=== PATIENT | female | born 1955 | race Caucasian/White ===

== ENCOUNTER 2016-07-22 15:15 | Emergency (ER) | payer OTHER, MEDICAID ==
[2016-07-22] MEDS ORDERED: LETS SOLN TOPICAL 1 EA SYR TP ONE ×2 (15:30)
[2016-07-22 15:39] VITALS: RESP 16; O2SAT 94
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
[2016-07-22 17:19] VITALS: BP 109/79; PULSE 89; TEMP 97.9
== END 2016-07-22 17:17 | disposition home or self-care (01) ==
LOC: EDUNIT#
DX: S80.211A Abrasion, right knee, initial encounter (principal); V03.10XA Pedestrian on foot injured in collision with car, pick-up truck or van in traffic accident, initial encounter; Y92.410 Unspecified street and highway as the place of occurrence of the external cause

== ENCOUNTER 2016-07-24 15:48 | Emergency (ER) | payer OTHER, MEDICAID ==
[2016-07-24 16:02] VITALS: TEMP 98.2
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
[2016-07-24 19:31] VITALS: RESP 18; O2SAT 95
[2016-07-24] MEDS ORDERED: IOPAMIDOL (ISOVUE-300) 100 ML BTL IV ONE (19:46)
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
[2016-07-24 21:26] VITALS: BP 115/70; PULSE 70
== END 2016-07-24 21:25 | disposition home or self-care (01) ==
DX: M25.551 Pain in right hip (principal); J45.909 Unspecified asthma, uncomplicated; Z87.891 Personal history of nicotine dependence; V89.2XXD Person injured in unspecified motor-vehicle accident, traffic, subsequent encounter
CPT/HCPCS: 71260; 74177; 99285; Q9967; 82947-QW

== ENCOUNTER 2017-07-29 23:30 | Emergency (ER) | payer OTHER, MEDICAID ==
[2017-07-29 23:37] VITALS: BP 127/89; PULSE 86; RESP 18; TEMP 98.4; O2SAT 96
--- NOTE | 2017-07-30 01:44 | EDPHY ---
H & P Time Seen by Provider: 07/29/17 23:46 HPI/ROS: CHIEF COMPLAINT: Bilateral hand pain HISTORY OF PRESENT ILLNESS: 62-year-old female presents to the emergency department with pain in both of her hands. She denies any known trauma or injury but feels that they are a bit more swollen. They are painful specially with movement. She saw her primary care provider today, Dr. Darshana Ramos, who recommended she come to the emergency department for evaluation. She is right-hand dominant. She also has URI symptoms including rhinorrhea and cough which she has had for several days. ROS: Denies numbness or tingling in her fingers, pain in her wrist or elbow. Denies fevers or chills. Past Medical/Surgical History: Knee replacement, scoliosis Social History: Single and lives in [place] Smoking Status: Former smoker Physical Exam: On examination the patient has arthritic deformity noted to her thumbs especially the base of the 1st MCP joint. She has reproducible pain with palpation at this joint. There is no redness or warmth or signs of infection. No lymphangitis. She has arthritic changes noted to her fingers especially nodes noted the D IP and PIP joints. Constitutional: Initial Vital Signs Temperature (C) 36.9 C 07/29/17 23:32 Heart Rate 86 07/29/17 23:32 Respiratory Rate 18 07/29/17 23:32 Blood Pressure 127/89 H 07/29/17 23:32 O2 Sat (%) 96 07/29/17 23:32 O2 Delivery Mode Room Air Allergies/Adverse Reactions: codeine Allergy (Verified 07/24/16 15:58) Sulfa (Sulfonamide Antibiotics) Allergy (Verified 07/24/16 15:58) sulfamethoxazole [From Septra] Allergy (Verified 07/24/16 15:58) trimethoprim [From Septra] Allergy (Verified 07/24/16 15:58) Home Medications: Medication Instructions Recorded Multivitamin 07/22/16 Erythromycin 07/29/17 Linzess 07/29/17 MDM/Departure - MDM Imaging Results: Bilateral hand x-rays revealed diffuse degenerative changes especially at the 1st MCP joint. No evidence of fracture. This is reviewed by myself the PAC system. Radiology interpretation to follow. Imaging: I viewed and interpreted images myself Procedures: She was placed in bilateral velcro thumb splints and examined post application in good placement with normal CONSULTANT DIETITIAN. Medications Given: Discontinued Medications Ibuprofen (Motrin) 400 mg PO EDNOW ONE Stop: 07/30/17 01:52 Last Admin: 07/30/17 01:57 Dose: Not Given ED Course/Re-evaluation: Xrays reveal chronic arthritic changes. No fractures. Clinically I do not think she has evidence of cellulitis. - Depart Disposition: Home, Routine, Self-Care Clinical Impression: Osteoarthritis of hands, bilateral Qualifiers: Osteoarthritis type: unspecified Qualified Code(s): M19.041 - Primary osteoarthritis, right hand; M19.042 - Primary osteoarthritis, left hand; M19.042 - Primary osteoarthritis, left hand Condition: Good Instructions: Osteoarthritis (ED) Additional Instructions: Splints for both hands for comfort and support. Ibuprofen 400mg every 8 hours for pain as directed. Referrals: Alejandro Warren MD [Medical Doctor] - 5-7 days, call for appt. (Orthopedic hand surgeon on-call)
[2017-07-30] MEDS ORDERED: IBUPROFEN 600 MG TAB PO ONE (01:51)
== END 2017-07-30 01:57 | disposition home or self-care (01) ==
DX: M19.041 Primary osteoarthritis, right hand (principal); M19.042 Primary osteoarthritis, left hand; Z87.891 Personal history of nicotine dependence
CPT/HCPCS: 73130; 99283; L3807

== ENCOUNTER 2017-08-27 13:28 | Emergency (ER) | payer OTHER, MEDICAID ==
[2017-08-27 13:34] VITALS: TEMP 98.4
--- NOTE | 2017-08-27 15:03 | EDPHY ---
H & P Time Seen by Provider: 08/27/17 14:13 HPI/ROS: CHIEF COMPLAINT: Left leg swelling HISTORY OF PRESENT ILLNESS: 62-year-old female presents to the emergency department with swelling to her left leg over last several days. She denies any known trauma or injury. She is concerned about possible blood clot. She has no history of DVT or PE in the past. She denies any known trauma. She has no associated pain with this. She states that in the past she has had some mild swelling in her lower legs, however she feels that this is worse. She denies chest pain or difficulty breathing. Specifically denies pleuritic chest pain. She denies symptoms in the right lower extremity or in her upper extremities bilaterally. No abdominal pain or vomiting. REVIEW OF SYSTEMS: Constitutional: No fever, no chills. Eyes: No double or blurry vision. ENT: No sore throat. Respiratory: No cough, no shortness of breath. Cardiac: No chest pain. Gastrointestinal: No abdominal pain, vomiting or diarrhea. Genitourinary: No dysuria. Musculoskeletal: No neck or back pain. Skin: No rashes. Neurological: No headache. Past Medical/Surgical History: Right knee replacement, scoliosis Social History: Single and lives in [place] Smoking Status: Former smoker Physical Exam: General Appearance: Alert, no distress. 97% on room air. Vital signs are otherwise stable. She is in no apparent distress. Eyes: Pupils equal and round. Extraocular motions are all intact. ENT: Mouth: Mucous membranes moist. Respiratory: No wheezing, rhonchi, or rales, lungs are clear to auscultation. Cardiovascular: Regular rate and rhythm. Gastrointestinal: Abdomen is soft and nontender, no masses, no rebound or guarding, bowel sounds normal. Neurological: Alert and oriented x 3, cranial nerves II through XII grossly intact Skin: Warm and dry, no rashes. Musculoskeletal: Nontender to palpate along the cervical, thoracic or lumbar spine. Neck is supple. Mild scoliosis noted in the lumbar spine. No palpable crepitus or pain with palpation. Extremities: Left lower extremity reveals some mild swelling compared to the right lower extremity. There is some slight pedal edema. Skin is warm and dry. There is no abrasions. No evidence of cellulitis. Nontender to palpate. Swelling extends from the left ankle up to about the left knee. She has full range of motion of her left ankle, left knee and hip. Psychiatric: Patient is oriented X 3, there is no agitation. Constitutional: Initial Vital Signs Temperature (C) 36.9 C 08/27/17 13:29 Heart Rate 78 08/27/17 13:29 Respiratory Rate 16 08/27/17 13:29 Blood Pressure 105/79 08/27/17 13:29 O2 Sat (%) 97 08/27/17 13:29 O2 Delivery Mode Room Air Allergies/Adverse Reactions: codeine Allergy (Verified 08/27/17 13:29) Sulfa (Sulfonamide Antibiotics) Allergy (Verified 08/27/17 13:29) sulfamethoxazole [From Septra] Allergy (Verified 08/27/17 13:29) trimethoprim [From Septra] Allergy (Verified 08/27/17 13:29) Home Medications: Medication Instructions Recorded Linzess 07/29/17 Albuterol [Proventil Inhaler HFA 1 - 2 puffs 08/27/17 (*)] Fluticasone/Salmeterol [Advair Hfa 8 gm 08/27/17 115-21 Mcg Inhaler] hydrOXYzine HCL [Vistaril] 10 mg PO 08/27/17 Medical Decision Making - Diagnostics Imaging: Discussed imaging studies w/ crew caller Radiologist ED Course/Re-evaluation: 62-year-old female presents to the emergency department with swelling to her left leg concerns about possible blood clot. Doppler ultrasound reveals no evidence of DVT. She does have a small Brock cyst noted in the popliteal area of the left knee. Patient was reassured that there is no evidence of DVT on ultrasound. I encouraged close follow-up with orthopedic surgeon. She will do activities as tolerated. She was instructed to return to the emergency department if she developed increasing swelling, paresthesias, pain, or if she felt worse in any way. I doubt pulmonary embolism. The patient has no respiratory complaints. She denies any pleuritic chest pain. No recent travel. Differential Diagnosis: Including but not limited to DVT, Brock cyst, pulmonary embolism, electrolyte abnormality, contusion Departure - Departure Disposition: Home, Routine, Self-Care Clinical Impression: Swelling of left lower extremity Bakers cyst Qualifiers: Laterality: left Qualified Code(s): M71.22 - Synovial cyst of popliteal space [ Brock], left knee Condition: Good Instructions: Bakers Cyst (ED), Leg Edema (ED) Additional Instructions: Activity as tolerated. Return to the emergency department if you have any change in symptoms or if you feel worse in any way. Follow up with orthopedic surgery this week to recheck. Referrals: Darshana Ramos MD [Primary Care Provider] - As per Instructions
[2017-08-27 15:13] VITALS: BP 102/68; PULSE 74; RESP 18; O2SAT 96
== END 2017-08-27 15:13 | disposition home or self-care (01) ==
DX: M79.89 Other specified soft tissue disorders (principal); M71.22 Synovial cyst of popliteal space [Baker], left knee; Z87.891 Personal history of nicotine dependence

== ENCOUNTER → 2018-03-09 | Outpatient (CLI) | payer OTHER, MEDICAID | LOC: FIMAGING 13:30 | PROVIDERS: ATTEND Family Medicine | DX: Z12.31 Encounter for screening mammogram for malignant neoplasm of breast (principal) ==